=== PATIENT | male | born 1955 | race Caucasian/White ===

== ENCOUNTER 2022-12-31 14:39 | Inpatient (IN) | payer MEDICARE, MEDICAID ==
[~2022-12-31] VITALS: Ht 177.8 cm; Wt 72.1 kg
[2022-12-31 14:55] VITALS: BP_SYST 130
--- NOTE | 2022-12-31 14:55 | NUR ---
RECEIVED PT FROM CLIFTON HUIZAR. MARCO A ARELLANO FROM HOME FOR ALOC. PT IS AAOX1, NONVERBAL AT THIS TIME. ALTERED FROM BASELINE. TELEMONITOR SHOWS NSR. ON R/A. DISTAL PULSES WEAK. SKIN CDI, NO EDEMA. NO S/S OF PAIN NOTED. SIDERAILS UP X2.
--- NOTE | 2022-12-31 15:00 | NUR ---
DR. HESTER AT BEDSIDE TO ASSESS PT.
--- NOTE | 2022-12-31 15:00 | NUR ---
PT THRASHING IN BED, PULLED OUT IV CATHETER. SOFT WRIST RESTRAINTS APPLIED.
[2022-12-31] MEDS ORDERED: NACL 0.9% 2,000 ML IV ONE (15:30)
[2022-12-31] MEDS ORDERED: cefTRIAXone 1 GM IVPB PREMIX 50 ML IV ONE (15:30)
--- NOTE | 2022-12-31 15:30 | NUR ---
URINE OBTAINED, BLOOD OBTAINED BOTH SENT TO LAB.
--- NOTE | 2022-12-31 15:31 | NUR ---
1000ML NS BOLUS INITIATED.
[2022-12-31 15:44] LABS: BILIRUBIN,URINE NEGATIVE (NEGATIVE); BLOOD, URINE 2+ (NEGATIVE); CLARITY/URINE SL CLOUDY (CLEAR); COLOR,URINE YELLOW (YELLOW); GLUCOSE,URINE NEGATIVE (NEGATIVE); KETONES,URINE NEGATIVE (NEGATIVE); LEUKOCYTE ESTERASE ,URINE NEGATIVE (NEGATIVE); NITRITE, URINE NEGATIVE (NEGATIVE); PROTEIN URINE NEGATIVE (NEGATIVE); UROBILINOGEN,URINE 0.2 (0.2-1.0)
[2022-12-31 15:54] LABS: BACTERIA,URINE FEW /HPF (None Seen); WBC,URINE NONE SEEN /HPF (0-3)
[2022-12-31 15:55] LABS: MUCUS,URINE None Seen /LPF (None Seen); URINE AMORPHOUS PHOSPHATES 2+ /HPF (None Seen)
[2022-12-31 15:56] LABS: BASOPHILS % (AUTO) 0.2 % (0.0-2.0); EOSINOPHILS % (AUTO) 0.1 % (0.0-4.0); HEMATOCRIT 44.8 % (36-54); HEMOGLOBIN 14.8 g/dL (14.0-18.0); LYMPHOCYTES # (AUTO) 0.5 K/uL (1.0-5.5); LYMPHOCYTES % (AUTO) 4.4 % (20.5-51.5); MEAN CORPUSCULAR HEMOGLOBIN 30 pg (27-31); MEAN CORPUSCULAR HGB CONC 33 % (32-36); MEAN CORPUSCULAR VOLUME 91 fL (79.0-98.0); MONOCYTES # (AUTO) 1.1 K/uL (0.0-1.0); MONOCYTES % (AUTO) 10.3 % (1.7-9.3); NEUTROPHILS # (AUTO) 8.9 K/uL (1.8-7.7); PLATELET COUNT (AUTO) 202 K/uL (130-430); RED BLOOD CELL COUNT(AUTO) 4.94 MIL/uL (4.2-6.2); RED CELL DISTRIBUTION WIDTH 14.7 % (9.0-15.0); WHITE BLOOD COUNT (AUTO) 10.5 K/uL (4.8-10.8)
--- NOTE | 2022-12-31 16:00 | NUR ---
# 29 gauge angiocath placed to RFA. Use of asceptic technique. Opsite placed over site. Blood return noted.Flushed with 10 cc of normal saline. No evidence of infiltration noted. Patient tolerated well.
[2022-12-31 16:05] LABS: ALBUMIN 3.6 g/dL (3.4-4.8); CALCIUM 8.8 mg/dL (8.4-11.0); CREATININE 0.86 mg/dL (0.55-1.30); TOTAL BILIRUBIN 0.5 mg/dL (0.0-1.0)
--- NOTE | 2022-12-31 16:47 | NUR ---
[facility] COVID OBTAINED AND TAKEN TO LAB. SCHEDULED MED GIVEN AND TOLERATED WELL.
[2022-12-31] MEDS ORDERED: AZITHROMYCIN 500 MG in NS 250 ML IV ONE (17:45)
[2022-12-31] MEDS ORDERED: AZITHROMYCIN 500 MG/VIAL (ZITHROMAX) IV ONE (17:59)
[2022-12-31] MEDS ORDERED: PRO40 PO (18:39)
[2022-12-31] MEDS ORDERED: ALBU2.5V7 INH (18:39)
[2022-12-31] MEDS ORDERED: SENN15TA PO (18:39)
[2022-12-31] MEDS ORDERED: ZOLP10TA2 PO (18:39)
[2022-12-31] MEDS ORDERED: SENN-298 (18:39)
[2022-12-31] MEDS ORDERED: IPRA4AER INH (18:39)
[2022-12-31] MEDS ORDERED: SER25 PO (18:39)
[2022-12-31] MEDS ORDERED: HYDR-3927 PO (18:39)
[2022-12-31] MEDS ORDERED: HYDROcodone/ACETAMIN 5-325 MG TAB (NORCO/ VICODIN) PO ONE (19:15)
[2022-12-31] MEDS ORDERED: AZITHROMYCIN 500 MG in NS 250 ML IV SCH (19:30)
[2022-12-31] MEDS ORDERED: DOCUSATE SODIUM 100 MG CAPSULE PO PRN (19:30)
[2022-12-31] MEDS ORDERED: POTASSIUM CHLORIDE 20 MEQ TAB.PRT.SR PO PRN (19:30)
[2022-12-31] MEDS ORDERED: ACETAMINOPHEN 325 MG TABLET PO PRN ×2 (19:30→20:00)
[2022-12-31] MEDS ORDERED: MORPHINE 2 MG/ML INJ. SYRINGE IVP PRN (19:30)
[2022-12-31] MEDS ORDERED: MUPIROCIN 2% TOPICAL OINTMENT 22 GM NS PRN (19:30)
[2022-12-31] MEDS ORDERED: MAGNESIUM SULFATE 50 ML IV PRN (19:30)
[2022-12-31] MEDS ORDERED: ONDANSETRON HCL 4 MG/2 ML VIAL IVP PRN (19:30)
--- NOTE | 2022-12-31 19:58 | NUR ---
ENDORSED PT TO GAYE SANCHEZ. ENDORSED ALL CARE.
[2022-12-31] MEDS ORDERED: NACL 0.9% 1,000 ML IV SCH (20:00)
--- NOTE | 2022-12-31 20:30 | NUR ---
Admit bed requested Patient will be admitted to care of Dr. HIGGINS. Admitted to TELEMETRY unit. Diagnosis ALOC Inpatient (Yes or No) YES Observation (Yes or No) NO Orientation concerns or request close to nursing station (Yes or No) NO Covid Status NEGATIVE On vent or bipap NO Isolation requirements NONE Needs a sitter NO From Home (Yes or if No enter name of facility) HOME Requires Dialysis (Yes or No) NO Med Rec Completed (Yes of No)
[2022-12-31] MEDS: HEPARIN SODIUM,PORCINE 5,000 UNITS/ML VIAL SUBCUT SCH (20:51)
--- NOTE | 2022-12-31 21:25 | NUR ---
Informed that patient is now NPO due to aspiration when she gave water to patient.
--- NOTE | 2022-12-31 21:30 | NUR ---
Patient resting quietly. No acute distress noted. Vital signs within normal range. at bedside.
[2022-12-31 22:21] VITALS: BP_SYST 121
--- NOTE | 2022-12-31 23:32 | NUR ---
Admission Note Received patient from ER with diagnosis of PNEUMONIA. Patient confused.
--- NOTE | 2022-12-31 23:35 | NUR ---
Patient will be admitted to care of DR. HIGGINS. Admitted to TELE unit. Will go to room 105A. Belongings list completed. Complete and up to date summary report printed. SBAR report to be given at bedside with opportunity for questions.
--- NOTE | 2022-12-31 23:40 | NUR ---
ADMISSION NOTE Received patient from ER via gurney. Patient admitted with diagnosis of PNA. Patient is awake restless and confused with soft wrist restraints. No s/s of skin irritation to the area. Restraints orders verified. Safety- protocol completed and patient was conected to tele monitoring. Personal belongings checked and Belongings List documented. Call light within reach. Will continue to monitor.
[2023-01-01 00:18] VITALS: BP_SYST 138
--- NOTE | 2023-01-01 04:00 | NUR ---
PAGED: Patients HR noted to be elevated ranging from 120-130BPM. Called Dr. Quintana and received new orders for a 500ml bolus x1. While on the phone also received orders to continue with the restraints that the patient was admitted with. Orders noted and carried out.
[2023-01-01] MEDS ORDERED: NACL 0.9% 500 ML IV ONE (04:45)
[2023-01-01 07:13] LABS: CALCIUM 8.5 mg/dL (8.4-11.0); CREATININE 0.73 mg/dL (0.55-1.30)
[2023-01-01 07:14] LABS: BASOPHILS % (AUTO) 0.2 % (0.0-2.0); HEMATOCRIT 42.5 % (36-54); HEMOGLOBIN 14.1 g/dL (14.0-18.0); LYMPHOCYTES # (AUTO) 0.8 K/uL (1.0-5.5); LYMPHOCYTES % (AUTO) 6.2 % (20.5-51.5); MEAN CORPUSCULAR HEMOGLOBIN 30 pg (27-31); MEAN CORPUSCULAR HGB CONC 33 % (32-36); MEAN CORPUSCULAR VOLUME 91 fL (79.0-98.0); MONOCYTES # (AUTO) 1.4 K/uL (0.0-1.0); MONOCYTES % (AUTO) 10.6 % (1.7-9.3); NEUTROPHILS # (AUTO) 10.8 K/uL (1.8-7.7); PLATELET COUNT (AUTO) 203 K/uL (130-430); RED BLOOD CELL COUNT(AUTO) 4.67 MIL/uL (4.2-6.2); RED CELL DISTRIBUTION WIDTH 14.6 % (9.0-15.0)
[2023-01-01 07:55] VITALS: BP_SYST 125
--- NOTE | 2023-01-01 08:00 | NUR ---
Start of shift Pt resting in bed next to nurses' station for close observation for needs and care. Pt has bilateral restraints - pt attempting to get OOB and has thrown all linens and pillow off the bed. No SOB/resp distress and tele unit attached and intact. Pt is NPO till swallow eval is done. Call light within reach.
[2023-01-01] MEDS: HEPARIN SODIUM,PORCINE 5,000 UNITS/ML VIAL SUBCUT SCH ×2 (08:49→21:02)
--- NOTE | 2023-01-01 09:23 | NUR ---
CONSULT ID PNEUMONIA DR BOUDREAUX [phone] S/W [facility] OFFICE
--- NOTE | 2023-01-01 10:21 | NUR ---
SWALLOW EVALUATION CALLED [facility] CALLED AT LEFT A VOICEMAIL FOR A SWALLOW EVALUATION.
[2023-01-01] MEDS: MORPHINE 2 MG/ML INJ. SYRINGE IVP PRN ×2 (10:29→14:50)
[2023-01-01] MEDS: ALBUTEROL SULFATE 0.083% 2.5 MG/3 ML VIAL.NEB INH PRN ×2 (10:42→16:21)
[2023-01-01 11:26] VITALS: BP_SYST 126
--- NOTE | 2023-01-01 11:45 | NUR ---
Note Pt's requested pt get some pain medication for pain in his back and shoulders. 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 Pt was given Morphine 1mg IVP. Pt calmed down and got sleepy. Pt given hygiene care q2' and PRN for urine incontinence by PARK NATURALIST and RN. Call light within reach. No needs noted at this time. IV in right hand intact and patent infusing IVF's well.
[2023-01-01] MEDS: D5NS 1,000 ML IV SCH ×2 (12:31→21:02)
[2023-01-01 15:16] VITALS: BP_SYST 135
--- NOTE | 2023-01-01 16:27 | NUR ---
ST EVALUATION COMPLETED. ST TX NOT INDICATED AT THIS TIME. RECOMMEND PO DIET OF PUREE/NECTAR THICK LIQUIDS. 1:1 FEEDER AND FULL ASPIRATION PRECAUTIONS
[2023-01-01] MEDS ORDERED: cefTRIAXone 1 GM IVPB PREMIX 50 ML IV SCH (16:30)
[2023-01-01] MEDS: CEFTRIAXONE SOD 1 GM/ D5W 50 ML IV SCH ×2 (16:42)
--- NOTE | 2023-01-01 17:05 | NUR ---
NOTE Pt's took pt's restraints off whenever she comes into the room and sits at bedside. RN explained to to pt's the importance of keeping bilateral wrist restraints on whenever she leaves the bedside/room, as pt attempts to get OOB or pulls off the linens and gown. Pt's 's questions/concerns were answered at this time. IV in right forearm in intact and patent infusing IVF's well all shift. Tele unit attached and intact. Call light within reach.
[2023-01-01] MEDS ORDERED: CLOP75TA32 PO (17:41)
[2023-01-01] MEDS: AZITHROMYCIN 500 MG in NS 250 ML IV SCH (18:26)
--- NOTE | 2023-01-01 18:40 | NUR ---
End of Shift. Pt's feeding pt his dinner, (Verónica) states she has been feeding pt for 7 years and "knows how to feed her ". Pt's IV in right hand intact and patent infusing IVF's well. Pt has been next to nurses' station all shift for close observation for needs and care. Pt's bed in low position and bed rails raised. Call light within reach. Bed alarm on. Tele unit attached and intact all shift. Pt's refuses to have bilateral wrist restraints on while she is at bedside feeding pt.
[2023-01-01] MEDS ORDERED: COMMUNICATION ORDER XX ONE (19:30)
[2023-01-01] MEDS ORDERED: ACETAMINOPHEN 650 MG/20.3 ML UDC PO PRN ×2 (19:35)
[2023-01-01 20:00] VITALS: BP_SYST 131
--- NOTE | 2023-01-01 20:17 | NUR ---
OPENING NOTES: Patient received from AM shift nurse. Patient is awake and oriented to self, no s/s of distress is noted at this time. Chest rise is even and unlabored on 2L via NC. Patient continues to be restless in bed so restraints remain needed at this time. Safety measures are in place as per protocol, and patient is on constant monitoring and is by the nursing station. Will resume care and continue to monitor throughout the shift.
[2023-01-01] MEDS: ZOLPIDEM TARTRATE 5 MG TABLET PO PRN (21:00)
[2023-01-02 01:48] VITALS: BP_SYST 112
[2023-01-02 07:22] LABS: BASOPHILS % (AUTO) 0.1 % (0.0-2.0); EOSINOPHILS % (AUTO) 0.1 % (0.0-4.0); HEMATOCRIT 37.5 % (36-54); HEMOGLOBIN 12.5 g/dL (14.0-18.0); LYMPHOCYTES # (AUTO) 1.2 K/uL (1.0-5.5); MEAN CORPUSCULAR HEMOGLOBIN 30 pg (27-31); MEAN CORPUSCULAR HGB CONC 33 % (32-36); MEAN CORPUSCULAR VOLUME 90 fL (79.0-98.0); MONOCYTES # (AUTO) 1.1 K/uL (0.0-1.0); MONOCYTES % (AUTO) 9.4 % (1.7-9.3); NEUTROPHILS # (AUTO) 8.9 K/uL (1.8-7.7); NEUTROPHILS % (AUTO) 79.4 % (40.0-70.0); PLATELET COUNT (AUTO) 171 K/uL (130-430); RED BLOOD CELL COUNT(AUTO) 4.18 MIL/uL (4.2-6.2); RED CELL DISTRIBUTION WIDTH 13.8 % (9.0-15.0); WHITE BLOOD COUNT (AUTO) 11.2 K/uL (4.8-10.8)
[2023-01-02 07:53] LABS: CALCIUM 8.6 mg/dL (8.4-11.0); CREATININE 0.6 mg/dL (0.55-1.30)
[2023-01-02 08:00] VITALS: BP_SYST 157
--- NOTE | 2023-01-02 08:37 | NUR ---
opening notes: pt in bed with eyes opened. pt is restless and attempting to get out of bed. checked iv, cleaned it and re-secured it as blood started draining from it. cleaned pt with associate professor of biostatistics as he had a bowel movement. provided perineal care and changed his linens and gown and repositioned pt. put bilateral wrist restraints on pt. no s/s of distress or pain. breathing is even and unlabored on ra. all needs met at this time, safety checks made, bed alarm on and call light within reach.
[2023-01-02] MEDS: HEPARIN SODIUM,PORCINE 5,000 UNITS/ML VIAL SUBCUT SCH ×2 (09:31→21:31)
--- NOTE | 2023-01-02 09:33 | NUR ---
rounds: pt in bed with eyes opened. family is at bedside feeding pt. answered her questions. cleaned pt has he had a 2nd bowel movement this morning. all needs met at this time, safety checks made and call light within reach.
--- NOTE | 2023-01-02 10:00 | NUR ---
rounds: family left bedside. reapplied restraints to pt. completed restraints safety checklist.
[2023-01-02] MEDS: MORPHINE 2 MG/ML INJ. SYRINGE IVP PRN (10:52)
[2023-01-02 11:50] VITALS: BP_SYST 118
--- NOTE | 2023-01-02 13:17 | NUR ---
Dietitian Recommendations * [id number], Ensure BID (straw. flavored) Submitted for CARMENCITA Castro by Agnieszka Walters, MPH, RD Please see Nutrition Assessment for further details. Thanks! Addendum: 01/02/23 at [address] Amended: Links added.
[2023-01-02] MEDS: CEFTRIAXONE SOD 1 GM/ D5W 50 ML IV SCH ×2 (16:18)
[2023-01-02 16:36] VITALS: BP_SYST 121
[2023-01-02] MEDS: AZITHROMYCIN 500 MG in NS 250 ML IV SCH (17:13)
--- NOTE | 2023-01-02 18:46 | NUR ---
CLOSING NOTES: PT IN BED WITH FAMILY AT BEDSIDE FEEDING PT DINNER. NO S/S OF DISTRESS OR PAIN REPORTED. BREATHING EVEN AND UNLABORED ON 2L NC. IV IS RUNNING ABX. ALL NEEDS MET AT THIS TIME, SAFETY CHECKS MADE AND CALL LIGHT WITHIN REACH. WILL ENDORSE TO BODY TRIMMER NURSE.
[2023-01-02 20:00] VITALS: BP_SYST 114
[2023-01-02] MEDS: ZOLPIDEM TARTRATE 5 MG TABLET PO PRN (21:25)
[2023-01-03] VITALS: BP_SYST 116
[2023-01-03 05:14] LABS: BASOPHILS % (AUTO) 0.3 % (0.0-2.0); EOSINOPHILS # (AUTO) 0.1 K/uL (0.0-0.4); EOSINOPHILS % (AUTO) 0.8 % (0.0-4.0); HEMATOCRIT 35.1 % (36-54); HEMOGLOBIN 11.8 g/dL (14.0-18.0); LYMPHOCYTES # (AUTO) 1.1 K/uL (1.0-5.5); LYMPHOCYTES % (AUTO) 15.9 % (20.5-51.5); MEAN CORPUSCULAR HEMOGLOBIN 30 pg (27-31); MEAN CORPUSCULAR HGB CONC 34 % (32-36); MEAN CORPUSCULAR VOLUME 89 fL (79.0-98.0); MONOCYTES # (AUTO) 0.8 K/uL (0.0-1.0); MONOCYTES % (AUTO) 11.3 % (1.7-9.3); NEUTROPHILS # (AUTO) 5.1 K/uL (1.8-7.7); NEUTROPHILS % (AUTO) 71.7 % (40.0-70.0); PLATELET COUNT (AUTO) 197 K/uL (130-430); RED BLOOD CELL COUNT(AUTO) 3.94 MIL/uL (4.2-6.2); RED CELL DISTRIBUTION WIDTH 13.6 % (9.0-15.0); WHITE BLOOD COUNT (AUTO) 7.1 K/uL (4.8-10.8)
[2023-01-03 05:36] LABS: CALCIUM 8.5 mg/dL (8.4-11.0); CREATININE 0.51 mg/dL (0.55-1.30)
[2023-01-03 08:00] VITALS: BP_SYST 128
--- NOTE | 2023-01-03 08:12 | NUR ---
OPENING NOTES: Patient received from PM shift nurse. Patient is awake and oriented to self, no s/s of distress is noted at this time. Chest rise is even and unlabored on RA 95%. Patient continues to be restless in bed so restraints remain needed at this time. Family is at bedside and restraints will be removed. Family member is feeding pt breakfast. Safety measures are in place as per protocol and the patient is near the nursing station.
[2023-01-03] MEDS ORDERED: DOXY100C5 PO (08:15)
[2023-01-03 08:27] VITALS: BP_SYST 128
[2023-01-03] MEDS: HEPARIN SODIUM,PORCINE 5,000 UNITS/ML VIAL SUBCUT SCH (08:36)
--- NOTE | 2023-01-03 11:10 | NUR ---
DISCHARGE: SPOKE WITH NU (SPOUSE) OF PT ABOUT THE PT BEING DISCHARGED HOME. SHE SAID SHE WILL BE HERE AROUND 1:30PM TO COATER SLATE THE PT WHEN SHE HAS HELP TO GET THE PT INTO HER CAR AND HOME.
[2023-01-03 11:35] VITALS: BP_SYST 120
[2023-01-03 12:00] VITALS: BP_SYST 120
[2023-01-03] MEDS ORDERED: metroNIDAZOLE 500 mg/NS 100 ML IV SCH (14:00)
--- NOTE | 2023-01-03 14:15 | NUR ---
patient discharged with and son at 2:15pm.
== END 2023-01-03 14:30 | disposition home or self-care (01) | DRG 871 ==
LOC: SED 14:39 → STU 19:27
PROVIDERS: ADMIT Family Medicine; ATTEND Family Medicine
DX: A41.9 Sepsis, unspecified organism (principal); G93.41 Metabolic encephalopathy; J18.9 Pneumonia, unspecified organism; Z20.822 Contact with and (suspected) exposure to COVID-19; Z74.01 Bed confinement status; Z79.891 Long term (current) use of opiate analgesic; Z79.899 Other long term (current) drug therapy; Z86.73 Personal history of transient ischemic attack (TIA), and cerebral infarction without residual deficits
CPT/HCPCS: 36415; 36600; 70450-TC; 71045; 76376; 80048; 80053; 81000; 82803-TC; 83605; 83735; 85025; 87040; 92610-GN; 93005; 94640; 94760; 96361; 96365; 96367; 99291; G0378; J0456; J0696; J1644; J2270; J3490; J7050; J7060; J7613